=== PATIENT | female | born 1960 | race Hispanic/Latino ===

== ENCOUNTER 2016-06-05 14:20 | Emergency (ER) | payer OTHER ==
[~2016-06-05] VITALS: Ht 165.1 cm; Wt 111.1 kg
[~2016-06-05 14:20] MED LIST: ASPIR 8181 MG PO; LOSARTAN POTASS25 MG PO; METHIMAZOLE5 MG PO; NAPROXEN500 MG PO; PERCOCET 325 MG1 TA2 PO
--- NOTE | 2016-06-05 15:15 | ED INFLUENZA/URI COMPLAINT ---
History of Present Illness General Chief Complaint: Upper Respiratory Sx/Fever Stated Complaint: URI X 1WEEK Source: patient, family, old records Exam Limitations: no limitations Vital Signs & Intake/Output Vital Signs & Intake/Output Vital Signs Date Time Temp Pulse Resp B/P Pulse O2 O2 Flow FiO2 Ox Delivery Rate 06/05 1643 97.0 60 18 109/65 99 Room Air 06/05 1550 97 06/05 1538 99 Room Air 06/05 1429 98.4 70 20 135/71 97 Room Air Allergies Coded Allergies: NO KNOWN ALLERGIES (06/04/14) Reconcile Medications Aspirin (Ecotrin) 81 MG TABLET.DR 1 TAB PO DAILY HEART HEALTH (Reported) Losartan Potassium (Unknown Strength) TABLET (Unknown Dose) PO DAILY BP ( Reported) Methimazole 5 MG TABLET 1 TAB PO DAILY AC THYROID (Reported) Naproxen 500 MG TABLET 1 TAB PO Q12H PRN PAIN/SWELLING OXYCODONE HCL/ACETAMINOPHEN (Percocet 5-325 MG Tablet) 325 MG/5 MG TAB 1 TAB PO Q4-6 PRN PRN PAIN Triage Note: RECEIVED 56 YO FEMALE C/O DRY HARSH COUGH X 5 DAYS WITH SHORTNESS OF BREATH AND RIGHT LATERAL RIBCAGE AREA PAIN WITH COUGHING. NO C/O N/V/D. Triage Nurses Notes Reviewed? yes Onset: Last week Duration: day(s):, constant, continues in ED Timing: recent history Severity: moderate Prior Episodes/Possible Cause: illness exposure No Modifying Factors: none Associated Symptoms: cough, dizziness, lightheadedness, nasal congestion, sore throat LMP (ages 10-50): post menopausal, unknown : No Patient currently breastfeeds: No HPI: 1 week prior to admission patient complains of hacking nonproductive cough nasal congestion chills sore throat with coughing right-sided chest pain with coughing. She denies fever nausea vomiting diarrhea abdominal pain shortness breath headache dysuria rash bleeding. Past History Travel History Traveled to [place] past 21 day No Medical History Any Pertinent Medical History? see below for history Neurological: NONE EENT: NONE Cardiovascular: hypertension Respiratory: NONE Gastrointestinal: NONE Hepatic: NONE Renal: NONE Musculoskeletal: PREVIOUS KNEE INJURY Psychiatric: NONE Endocrine: HYPERTHYROID Blood Disorders: NONE Cancer(s): NONE Surgical History Surgical History: non-contributory Psychosocial History Who do you live with Spouse Services at Home None What is your primary language Kazakh Tobacco Use: Never used Family History Hx Contributory? No Review of Systems Review of Systems Constitutional: Reports: see HPI, chills. EENTM: Reports: nasal congestion, throat pain. Respiratory: Reports: see HPI, cough. Cardiovascular: Reports: no symptoms. GI: Reports: no symptoms. Genitourinary: Reports: no symptoms. Musculoskeletal: Reports: no symptoms. Skin: Reports: no symptoms. Neurological/Psychological: Reports: no symptoms. Hematologic/Endocrine: Reports: no symptoms. Immunologic/Allergic: Reports: no symptoms. All Other Systems: Reviewed and Negative Physical Exam Physical Exam General Appearance: well developed/nourished, alert, awake, anxious, moderate distress, obese Head: atraumatic, normal appearance Eyes: Bilateral: normal appearance, PERRL, EOMI. Ears, Nose, Throat: moist mucous membrane, nasal drainage Neck: normal inspection, supple, full range of motion, trachea midline, lymphadenopathy (R), lymphadenopathy (L), no midline tenderness Respiratory: chest non-tender, quiet respiration, lungs clear, decreased breath sounds Cardiovascular: regular rate/rhythm, normal peripheral pulses, norml femoral pulses equa Peripheral Pulses: 4+ carotid (R), 4+ carotid (L) Gastrointestinal: normal bowel sounds, soft, non-tender, no organomegaly Back: normal inspection, normal range of motion Extremities: normal inspection, normal capillary refill, normal range of motion, no edema Neurologic/Psych: no motor/sensory deficits, awake, alert, oriented x 3, normal gait, normal mood/affect, barrel rifler II-XII nml as tested Reflexes: 2+: bicep (R), bicep (L). Skin: intact, normal color, warm/dry Lymphatic: adenopathy Core Measures Severe Sepsis Present: No Septic Shock Present: No Progress Differential Diagnosis: influenza, otitis, pneumonia, pharyngitis, sinusitis Plan of Care: Orders Procedure Date/time Status RAPID VIRAL INFLUENZA A 06/05 1505 Complete Current Medications Sig/Reanna Start time Last Medication Dose Stop Time Status Admin Albuterol Sulfate 3 ML ONCE ONE 06/05 1545 CAN (Proventil) 06/05 1546 Ipratropium [place] 2.5 ML ONCE ONE 06/05 1545 CAN (Atrovent) 06/05 1546 Diagnostic Imaging: Viewed by Me: Radiology Read. Discussed w/RAD: Radiology Read. CXR Impression: no acute abnormality Initial ED EKG: none Departure Departure Time of Disposition: 1714 Disposition: HOME OR SELF CARE Condition: Stable Clinical Impression Primary Impression: Bronchitis Referrals: LEAH AZAR DO (PCP/Family) Departure Forms: Customer Survey General Discharge Information Prescriptions: Current Visit Scripts Amoxicillin 1 TAB PO BID #20 TAB Albuterol Sulfate (Proair Hfa) 2-4 PUF INH Q4-6 PRN PRN shortness of breath #1 INHAL Promethazine HCl/Codeine (Promethazine-Codeine Syrup) 5-10 ML PO Q6P #240 ML
--- NOTE | 2016-06-05 17:05 | RADIOLOGY REPORT ---
EXAMINATION: XR CHEST CLINICAL INFORMATION: Hacking cough. Evaluate for pneumonia. COMPARISON: Multiple priors, most recent CT chest dated 05/03/2013. TECHNIQUE: PA and lateral views of the chest were obtained. FINDINGS: The lungs are clear. The cardiomediastinal silhouette is normal in size. There is no pleural effusion or pneumothorax. No abnormalities are noted in the visualized bones. IMPRESSION: No acute cardiopulmonary disease.
[2016-06-05] MEDS ORDERED: PROAIR HFA8.5 GM INH ×2 (17:16→17:23)
[2016-06-05] MEDS ORDERED: AMOXICILLIN875 M1 PO ×2 (17:16→17:23)
[2016-06-05] MEDS ORDERED: PROMETHAZINE-C118 ML PO ×2 (17:16→17:23)
[2016-06-05 17:34] VITALS: BP 112/74
== END 2016-06-05 17:34 ==
LOC: ERH 14:20
DX: J40 Bronchitis, not specified as acute or chronic (principal); R07.9 Chest pain, unspecified
CPT/HCPCS: 1263; 87804; 87804-59

== ENCOUNTER 2017-12-09 09:50 | Emergency (ER) | payer OTHER ==
[~2017-12-09] VITALS: Ht 165.1 cm; Wt 116.6 kg
[~2017-12-09 09:50] MED LIST changes: +AMOXICILLIN875 M1 PO; +AUGMENTIN 875-1 EACH PO; +GABAPENTIN300 M2 PO; +LOSARTAN POTASS25 M1 PO; +METHIMAZOLE5 M1 PO; +NASONEX17 GM NASB; +PREDNISOLO15 MG/5 M4 PO; +PROAIR HFA8.5 GM INH; +PROMETHAZINE-C118 ML PO; +VALTREX1000 MG PO; +VENTOLIN HFA18 GM INH; +VITAMIN D31000 UNI1 PO
--- NOTE | 2017-12-09 11:45 | ED GI/GU/ABDOMINAL COMPLAINT ---
History of Present Illness General Chief Complaint: Nausea, Vomiting, Diarrhea Stated Complaint: N/V Source: patient, family Exam Limitations: no limitations Vital Signs & Intake/Output Vital Signs & Intake/Output Vital Signs Date Time Temp Pulse Resp B/P B/P Pulse O2 O2 Flow FiO2 Mean Ox Delivery Rate 12/09 1411 65 18 135/65 99 Room Air 12/09 1234 60 18 143/61 100 Room Air 12/09 1232 Room Air 12/09 0955 97.5 65 18 162/81 99 Room Air Allergies Coded Allergies: No Known Allergies (12/08/17) Reconcile Medications Atorvastatin Calcium 20 MG TABLET 1 TAB PO DAILY CHOLESTEROL (Reported) Cholecalciferol (Vitamin D3) (Vitamin D3) 1,000 UNIT CAPSULE 1 CAP PO DAILY SUPPLEMENT (Reported) Gabapentin 300 MG CAPSULE 1 CAP PO TID PRN PAIN (Reported) Losartan Potassium 25 MG TABLET 1 TAB PO DAILY HTN (Reported) Methimazole 5 MG TABLET 1 TAB PO DAILY THYROID (Reported) Ondansetron (Zofran Odt) 4 MG TAB.RAPDIS 1 TAB SL TID PRN nausea Triage Note: 57F STARTED LIQUID DIET FOR LAP BAND AND BEGAN FEELING NAUSEOUS LAST NIGHT AND STARTED VOMITING X4 APPROX 2 HOURS AGO. FEELING TOO WEAK AND SHAKEY, UNABLE TO WALK DUE TO WEAKNESS. DENIES ABD PAIN, ONLY HAS PAIN TO DENOMINATIONAL HEADACHE AFTER VOMITING Triage Nurses Notes Reviewed? yes ? N Is pt currently ? No Onset: Gradual Duration: day(s): Timing: recent history Quality/Severity: moderate HPI: 57-year-old female presents emergency department complaining of headache and vomiting beginning yesterday. Patient states that last night she began feeling right sided throbbing headache described as severe. Patient states that this morning headache has persisted and she now has had episodes of vomiting. Vomiting is nonbloody, nonbilious. Patient reports associated nausea with her vomiting. Vomiting has worsened her headache. Patient reports feeling weak and shaky at this time. Patient states that she started a liquid diet yesterday for an upcoming lap band scheduled for 12/20. Patient notes she just switched from regular coffee to decaf. She reports chills. The patient denies abdominal pain, diarrhea, chest pain, dyspnea, head trauma, loss of conciousness. (Gerda ABREU,Misti Plunkett) Past History Travel History Traveled to [place] past 21 day No Medical History Any Pertinent Medical History? see below for history Neurological: NONE EENT: NONE Cardiovascular: hypertension, CHOL Respiratory: NONE Gastrointestinal: NONE Hepatic: NONE Renal: NONE Musculoskeletal: PREVIOUS KNEE INJURY Psychiatric: NONE Endocrine: HYPERTHYROID Blood Disorders: NONE Cancer(s): NONE Surgical History Surgical History: non-contributory Psychosocial History Who do you live with Spouse Services at Home None What is your primary language Finnish Tobacco Use: Never used Family History Hx Contributory? No (Misti Antony) Review of Systems Review of Systems Constitutional: Reports: no symptoms. EENTM: Reports: no symptoms. Respiratory: Reports: no symptoms. Cardiovascular: Reports: no symptoms. GI: Reports: see HPI. Genitourinary: Reports: no symptoms. Musculoskeletal: Reports: no symptoms. Skin: Reports: no symptoms. Neurological/Psychological: Reports: see HPI. Hematologic/Endocrine: Reports: no symptoms. Immunologic/Allergic: Reports: no symptoms. All Other Systems: Reviewed and Negative (Misti Antony) Physical Exam Physical Exam General Appearance: well developed/nourished, no apparent distress, alert, awake Head: atraumatic, normal appearance Eyes: Bilateral: normal appearance, PERRL, EOMI. Ears, Nose, Throat, Mouth: hearing grossly normal, moist mucous membrane, cerumen bilateral ear canals without erythema Neck: normal inspection, supple, full range of motion Respiratory: normal breath sounds, no respiratory distress, lungs clear Cardiovascular: regular rate/rhythm Gastrointestinal: normal bowel sounds, soft, non-tender, no organomegaly Back: normal inspection, normal range of motion Extremities: normal range of motion Neurologic/Psych: no motor/sensory deficits, awake, alert, oriented x 3, forming machine adjuster II- XII nml as tested Skin: intact, normal color, warm/dry Core Measures ACS in differential dx? No Sepsis Present: No Sepsis Focused Exam Completed? No (Misti Antony) Progress Differential Diagnosis: bowel obstruction, cholecystitis, gastritis, hernia, peptic ulcer, PUD/GERD, SBO, ICH, SAH, malignancy, migraine headache, caffiene withdrawal Plan of Care: Orders Procedure Date/time Status EKG 12/09 1158 Active URINALYSIS 12/09 0954 Complete TROPONIN LEVEL 12/09 0954 Complete LIPASE 12/09 0954 Complete COMPREHENSIVE METABOLIC PANEL 12/09 0954 Complete CBC WITHOUT DIFFERENTIAL 12/09 0954 Complete Laboratory Tests 12/09/17 1217: Urinalysis MOD H, Urine Color YEL, Urine Clarity HAZY H, Urine pH 8.0, Ur Specific [place] 1.020, Urine Protein TRACE H, Urine Ketones TRACE H, Urine Nitrite NEG, Urine Bilirubin NEG, Urine Urobilinogen 0.2, Ur Leukocyte Esterase NEG, Ur Microscopic SEDIMENT EXAMINED, Urine RBC 3-5, Urine WBC RARE, Ur Epithelial Cells FEW, Urine Bacteria FEW H, Urine Mucus MOD H, Urine Hemoglobin NEG, Urine Glucose NEG 12/09/17 1145: Anion Gap 8, Estimated GFR > 60, BUN/Creatinine Ratio 26.7 H, Glucose 113 H, Calcium 9.6, Total Bilirubin 1.8 H, AST 30, ALT 39, Alkaline Phosphatase 62, Troponin I < 0.01, Total Protein 7.3, Albumin 4.2, Globulin 3.1, Albumin/ Globulin Ratio 1.4, Lipase 147, CBC w Diff NO MAN DIFF REQ, RBC 5.03, MCV 84.7, MCH 28.4, MCHC 33.5, RDW 14.3, MPV 7.7, Gran % 81.4 H, Lymphocytes % 14.0 L, Monocytes % 3.9, Eosinophils % 0.4, Basophils % 0.3, Absolute Granulocytes 4.6, Absolute Lymphocytes 0.8 L, Absolute Monocytes 0.2, Absolute Eosinophils 0, Absolute Basophils 0 Patient is neurologically intact on physical exam, no focal neurologic deficit. She answers questions readily. Head CT scan shows no acute abnormality. Patient's labs are stable, bilirubin is slightly elevated however she has no abdominal tenderness is likely related to her acute vomiting episodes. She has had no further vomiting here in the emergency department. She reports significant improvement in headache and nausea following IV medications. Patient has gone from 6 cups of coffee a day to 0, acute headache may be related to caffeine withdrawal. The patient feels ready to go home at this time. I encouraged her to contact her bariatric surgeon discuss options for tapering her caffeine may help with her headache. Patient is now able to ambulate leaving the emergency department. She agrees with the plan of care. Strict return precautions given. Diagnostic Imaging: Viewed by Me: CT Scan. Discussed w/RAD: CT Scan. Radiology Impression: PATIENT: TORI NGUYEN PRESENT AGE: 57 PATIENT ACCOUNT NO: [id number] : 56 LOCATION: [facility] ORDERING PHYSICIAN: Misti ABREU SERVICE DATE: 12/09/17 EXAM TYPE: CAT - CT HEAD WO IV CONTRAST EXAMINATION: CT HEAD WITHOUT CONTRAST CLINICAL INFORMATION: Headache followed by vomiting. Rule out ICH. COMPARISON: Brain MRI 04/22/2016. TECHNIQUE: Contiguous axial imaging was performed from the skull base to vertex without intravenous administration of contrast. DLP: 613 mGy-cm. FINDINGS: There is no intracranial hemorrhage, large infarction, or mass lesion. There is no extra-axial collection. The ventricles are normal in size and configuration without evidence of hydrocephalus. The visualized paranasal sinuses and mastoid air cells are clear. IMPRESSION: No acute intracranial abnormality. DICTATED BY: Duong Johnson MD DATE/TIME DICTATED:12/09/171254 PLANT ETIOLOGIST:KM DATE/TIME TRANSCRIBED:12/09/171254 CONFIDENTIAL, DO NOT COPY WITHOUT APPROPRIATE AUTHORIZATION. <Electronically signed in Other Vendor System> SIGNED BY: Duong Johnson MD 12/09/17 1307 Initial ED EKG: sinus rhythm @51bpm, nonspecific ST changes Repeat EKG: unchanged (05/03/13) (Gerda ABREU,Misti Plunkett) Departure Departure Disposition: HOME OR SELF CARE Condition: Stable Clinical Impression Primary Impression: Headache Qualifiers: Headache type: unspecified Headache chronicity pattern: acute headache Intractability: not intractable Qualified Code: R51 - Headache Secondary Impressions: Nausea & vomiting Qualifiers: Vomiting type: unspecified Vomiting Intractability: non-intractable Qualified Code: R11.2 - Nausea with vomiting, unspecified Referrals: Kiesha White DO (PCP/Family) Additional Instructions: Your headache may be related to caffeine withdrawal. Discuss the option of drinking caffeine with your bariatric surgeon. Increase fluids and rest. Take Zofran as prescribed as needed for nausea. Return with worsening symptoms or concerns. Please note that there might be incidental findings in your evaluation that are unrelated to the current emergency department visit. Please notify your primary care doctor about this emergency department visit in order to obtain and review all of the testing performed so that these incidental findings can be monitored as needed. If you had an x-ray performed, please understand that some fractures may not be seen on the initial set of x-rays. If your symptoms persist you might need a repeat set of x-rays to check for such a fracture. If you had a laceration evaluated, please understand that foreign bodies such as glass or wood may not be visible to the naked eye or on plain x-rays. If the wound becomes red, swollen, increasingly more painful or if there is any drainage from the wound, please have it reevaluated by a physician for the possibility of a retained foreign body. If you're unable to follow up as outlined in the discharge instructions please return to the emergency department. Thank you for choosing the [facility] Emergency Department for your care. It was a pleasure to serve you today. Departure Forms: Customer Survey General Discharge Information Prescriptions: Current Visit Scripts Ondansetron (Zofran Odt) 1 TAB SL TID PRN nausea #10 TAB (Gerda ABREU,Misti Plunkett) PA/PEACH GROWER Co-Sign Statement Statement: ED Attending supervision documentation- [] I saw and evaluated the patient. I have also reviewed all the pertinent lab results and diagnostic results. I agree with the findings and the plan of care as documented in the PA's/PEACH GROWER's documentation. [X] I have reviewed the ED Record and agree with the PA's/PEACH GROWER's documentation. [] Additions or exceptions (if any) to the PAs/PEACH GROWER's note and plan are summarized below: [] (Jaren ELIZABETH,Stoney Cobb)
[2017-12-09 11:55] LABS: ABSOLUTE BASOPHIL COUNT 0 /CUMM (0.0-0.2); ABSOLUTE EOSINOPHIL COUNT 0 /CUMM (0.0-0.7); ABSOLUTE GRANULOCYTE CT 4.6 /CUMM (1.4-6.5); ABSOLUTE LYMPH COUNT 0.8 /CUMM (1.2-3.4); ABSOLUTE MONOCYTE COUNT 0.2 /CUMM (0.10-0.60); BASOPHIL % 0.3 % (0.0-2.0); EOSINOPHIL % 0.4 % (0-5); HEMATOCRIT 42.6 % (37-47); MEAN CORPUSCULAR HGB 28.4 PG (27.0-31.0); MEAN CORPUSCULAR HGB CONC 33.5 G/DL (33.0-37.0); MEAN CORPUSCULAR VOLUME 84.7 FL (81.0-99.0); MEAN PLATELET VOLUME 7.7 FL (7.4-10.4); PLATELET COUNT 238 /CUMM (130-400); RBC DISTRIBUTION WIDTH 14.3 % (11.5-14.5); RED BLOOD CELL CT 5.03 /CUMM (4.20-5.40); WHITE BLOOD CELL COUNT 5.7 /CUMM (4.8-10.8)
[2017-12-09 11:56] LABS: GRANULOCYTE % 81.4 % (42.2-75.2)
--- NOTE | 2017-12-09 13:07 | CT SCAN REPORT ---
EXAMINATION: CT HEAD WITHOUT CONTRAST CLINICAL INFORMATION: Headache followed by vomiting. Rule out ICH. COMPARISON: Brain MRI 04/22/2016. TECHNIQUE: Contiguous axial imaging was performed from the skull base to vertex without intravenous administration of contrast. DLP: 613 mGy-cm. FINDINGS: There is no intracranial hemorrhage, large infarction, or mass lesion. There is no extra-axial collection. The ventricles are normal in size and configuration without evidence of hydrocephalus. The visualized paranasal sinuses and mastoid air cells are clear. IMPRESSION: No acute intracranial abnormality.
[2017-12-09] MEDS ORDERED: ATORVASTATIN CA20 M1 PO (13:08)
[2017-12-09 14:11] VITALS: BP 135/65
[2017-12-09] MEDS ORDERED: ZOFRAN ODT4 M1 SL (14:24)
== END 2017-12-09 14:26 ==
LOC: ERH 09:50
PROVIDERS: Physician Assistant Medical
DX: R51 Headache (principal); R11.2 Nausea with vomiting, unspecified
CPT/HCPCS: 81001; 93005; 93010; 96374; 96375; J1200; J1885; J2765; J3101

== ENCOUNTER 2017-12-20 01:21 | Inpatient (IN) | payer OTHER ==
[~2017-12-20] VITALS: Ht 165.1 cm; Wt 111.6 kg
[~2017-12-20 01:21] MED LIST changes: +ATORVASTATIN CA20 M1 PO; +ZOFRAN ODT4 M1 SL
--- NOTE | 2017-12-20 12:51 | Operative Report ---
Operative/Inv Procedure Report Surgery Date: 12/20/17 Name of Procedure: Robotic assisted laparoscopic vertical sleeve gastrectomy Pre-Operative Diagnosis: Morbid obesity Post-Operative Diagnosis: Morbid obesity Estimated Blood Loss: less than 50ml Surgeon/Bracelet And Brooch Maker: Raina ELIZABETH,Merritt Peck PA-C Anesthesia: general endotracheal tube, block IV Fluids: Lactated Ringer's Urine Output: Not measured Drains: None Specimens: Portion of stomach Complications: None Condition: Stable Operative Indication: Please see admitting history and physical Operative/Procedure Note Note: After informed consent and proper identification the patient was taken to the operating room placed on the operating table in supine position. Venodyne stockings were applied. She underwent a general endotracheal anesthetic. Anesthesia performed a tap block. The abdomen was prepped and draped in normal sterile fashion. Using a 1 cm incision just to the left of midline umbilicus we inserted a 0 Stortz laparoscope through a 8 mm robotic Visiport entering the abdominal cavity without difficulty insufflating with 14 mm of CO2 pressure. In horizontal line we placed 3 additional trochars 80 mm trocar just to the right in the midline umbilicus a 12 mm trocar to the left as well as an 8 mm trocar most laterally on the left. We placed a Britany liver retractor in the upper midline to retract the left lobe of liver we docked the robot placing arm #2 to the camera port and then targeted the robot. We then talked the rest of the arms. Using an arm 1 Accardi a forcep and arm for a tip up retractor and the vessel sealer in arm 3 with anesthesia to decompress his stomach with an orogastric tube and then remove it we took down the vascular attachments along the greater curvature of the stomach using the vessel sealer. We then had anesthesia place a 40 Estonian bougie in approximately 6 cm from the pylorus opposite the angularis we used a robotic stapler firing 3 green load staple cartridges followed by 4 blue load cartridges to completely straight transect the remnant stomach from newly created sleeve we oversewed the staple line using a 3-0V lock suture on a Cv23 needle imbricating the entire staple line. We then removed and a Britany liver retractor went back to the table from the surgeon' s console and removed the remnant stomach and a 12 Endo Catch bag and removed all trochars there is no active bleeding sponge and instrument counts were correct. No sponges were placed in the abdominal cavity the single needle that was placed was removed. Close the skin incisions with 4-0 Monocryl subcuticular stitches and skin glue. The patient tolerated procedure without complications and was taken recovery room in stable condition Findings: Normal-appearing liver and no evidence of hiatal hernia Discharge Disposition: PACU
--- NOTE | 2017-12-20 13:34 | Patient Discharge Instructions ---
Discharge Instructions General Discharge Information You were seen/treated for: Morbid obesity, hyperlipidemia, hypertension, hyperthyroidism You had these procedures: Robotic sleeve gastrectomy Watch for these problems: Bleeding, signs of infection including redness, swelling, or unusual drainage from incisions, fever greater than 101, increased pain, nausea, vomiting, excessive diarrhea, or no bowel movements, or any other problems, questions, or concerns Do not soak the wound: Yes Daily wet to dry dressings: No No bath, but you may shower: Yes Other wound care: glue will slough off on its own Diet Continue normal diet: No Recommended Diet: Bariatric Activity Full Activity/No Limits: No Activity Self Limited: Yes Pounds, do NOT lift more than: 10 (x 2 weeks) Acute Coronary Syndrome Inclusion Criteria At DC or during hospital stay patient has or had the following: ACS DIAGNOSIS No Discharge Core Measures Meds if any: Prescribed or Continued at Discharge Meds if any: NOT Prescribed or Continued at Discharge Congestive Heart Failure Inclusion Criteria At DC or during hospital stay patient has or had the following: CHF DIAGNOSIS No Discharge Core Measures Meds if any: Prescribed or Continued at Discharge Meds if any: NOT Prescribed or Continued at Discharge Cerebrovascular accident Inclusion Criteria At DC or during hospital stay patient has or had the following: CVA/TIA Diagnosis No Discharge Core Measures Meds if any: Prescribed or Continued at Discharge Meds if any: NOT Prescribed or Continued at Discharge Venous thromboembolism Inclusion Criteria VTE Diagnosis No VTE Type NONE VTE Confirmed by (Test) NONE Discharge Core Measures - Per Current guidelines, there needs to be overlap - treatment for the first 5 days of Warfarin therapy. - If discharged on Warfarin prior to 5 days of - overlap therapy, the patient will need to be - assessed for post discharge needs including - *Post discharge parental anticoagulation - *Warfarin and/or parental anticoagulation education - *Follow up date to check INR post discharge At least 5 days overlap therapy as Inpatient No Meds if any: Prescribed or Continued at Discharge Note: Overlap Therapy is Warfarin and Anticoagulant Meds if any: NOT Prescribed or Continued at Discharge
--- NOTE | 2017-12-20 13:35 | Admission Core Measures ---
Acute Coronary Syndrome (CM) ACS Core Measures Acute Coronary Syndrome Diagnosis No Congestive Heart Failure (NEW) CHF Core Measures Congestive Heart Failure Diagnosis No Cerebrovascular Accident CVA Core Measures CVA/TIA Diagnosis No Venous Thromboembolism VTE Core Mary (View Protocol) VTE Risk Factors Surgery No Mechanical VTE Prophylaxis d/t N/A MechProphylax Ordered No VTE Pharm Prophylaxis d/t NA PharmProphylax ordered Problem List As ranked by this Provider includes Assessment & Plan 1. Morbid obesity 2. S/P laparoscopic sleeve gastrectomy HOME MEDS Home Med List Atorvastatin Calcium 20 MG TABLET 1 TAB PO DAILY CHOLESTEROL (Reported) Cholecalciferol (Vitamin D3) (Vitamin D3) 1,000 UNIT CAPSULE 1 CAP PO DAILY SUPPLEMENT (Reported) Gabapentin 300 MG CAPSULE 1 CAP PO TID PRN PAIN (Reported) Losartan Potassium 25 MG TABLET 1 TAB PO DAILY HTN (Reported) Methimazole 5 MG TABLET 1 TAB PO DAILY THYROID (Reported) Ondansetron (Zofran Odt) 4 MG TAB.RAPDIS 1 TAB SL TID PRN nausea
--- NOTE | 2017-12-20 13:38 | Surg Short-stay <48hrs Dis Sum ---
Visit Information Visit Dates Admission Date: 12/20/17 Discharge Date: 12/21/17 Surgical Short Stay DC Summary Admission Diagnosis: Morbid obesity Final Diagnosis: Same Procedure(s): Robotic sleeve gastrectomy Summary/Significant Findings: This is a 57 yo female with a past medical history significant for hypertension, hyperlipidemia, arthritis, hyperthyroidism, and morbid obesity who presented electively for robotic sleeve gastrectomy. Patient underwent the aforementioned procedure without complication. Postoperative course was uncomplicated. She was initiated on a bariatric stage I diet day of surgery and underwent an upper GI on postop day #1 which revealed no obstruction or leak. She was placed back on a bariatric stage I diet which she tolerated without difficulty. By time of discharge patient was ambulating, voiding, tolerating a bariatric stage I diet, and pain was well-controlled with oral analgesia. Plan is for the patient to follow-up with Dr. Paris in 1-2 weeks. She was instructed to call sooner with any other problems, questions, or concerns. Full details of her hospital course , operative report, and diagnostic studies can be found in the patient's electronic chart. Condition at Discharge: Stable Discharge Disposition: home or self care Discharge instructions provided to patient/family: Yes Post discharge follow-up plan: With Dr. Paris in 1-2 weeks Copies to: Raina ELIZABETH,Merritt Mancini
--- NOTE | 2017-12-20 15:09 | PN- General Surgery ---
Subjective Subjective: POC pt recovering in PACU, tolerating ice chips with no nausea. 5/10 pain/pressure over stomach. Due to void. No CP/SOB/QURESHI Objective Vital Signs and I&Os VSS, afebrile resp- clear cardiac- RRR abd- obese, soft, minimally tender. small amount of dry blood around far right abd incision. all other incisions are clean and dry covered with glue ext- no calf tenderness Current Medications: Current Medications Sig/Reanna Start time Last Medication Dose Route Stop Time Status Admin Acetaminophen 1,000 MG Q6H 12/20 1330 UNVr N/A 1 UNIT IV 12/21 0744 Acetaminophen 0 .STK-MED ONE 12/20 1000 DC IV Atorvastatin Calcium 20 MG 1700 12/20 1700 UNVr PO Cefazolin Sodium 2,000 MG ONCE 12/20 0000 NR IV 12/20 2359 Cholecalciferol 2,000 IU DAILY 12/21 0900 UNVr PO Dexamethasone 10 MG ONCE 12/20 0000 NR IV 12/20 2359 Diphenhydramine HCl 50 MG Q6P PRN 12/20 1330 UNVr IV Docusate Sodium 100 MG BID 12/20 2100 UNVr PO Enoxaparin Sodium 40 MG DAILY 12/21 0900 UNVr SC Fentanyl Citrate 0 .STK-MED ONE 12/20 1001 DC .ROUTE Gabapentin 300 MG Q8 12/20 1400 UNVr PO Heparin Sodium 0 .STK-MED ONE 12/20 0838 DC (Porcine) .ROUTE Heparin Sodium 5,000 UNIT PRE 12/20 0000 NR (Porcine) SC 12/20 2359 Hydromorphone HCl 0 .STK-MED ONE 12/20 1453 DC .ROUTE Hydromorphone HCl 0 .STK-MED ONE 12/20 1409 DC .ROUTE Hydromorphone HCl 0 .STK-MED ONE 12/20 1331 DC .ROUTE Ketorolac 15 MG Q6 12/20 1800 UNVr Tromethamine IV 12/21 1801 Ketorolac 0 .STK-MED ONE 12/20 1001 DC Tromethamine .ROUTE Lactated Ringer's 1,000 ML Q13H 12/20 1330 UNVr IV Losartan Potassium 25 MG DAILY 12/21 0900 UNVr PO Methimazole 5 MG DAILY 12/21 0900 UNVr PO Metoclopramide HCl 10 MG Q6P PRN 12/20 1330 UNVr IV Morphine Sulfate 2 MG Q4P PRN 12/20 1330 UNVr IV Morphine Sulfate 4 MG Q4P PRN 12/20 1330 UNVr IV Ondansetron HCl 0 .STK-MED ONE 12/20 1337 DC .ROUTE Ondansetron HCl 4 MG Q6P PRN 12/20 1330 UNVr IV Ondansetron HCl 0 .STK-MED ONE 12/20 1000 DC .ROUTE Oxycodone/ 1 TAB Q4P PRN 12/20 1330 UNVr Acetaminophen PO Oxycodone/ 2 TAB Q4P PRN 12/20 1330 UNVr Acetaminophen PO Pantoprazole Sodium 40 MG DAILY 12/20 1323 UNVr IV Polyethylene Glycol 17 GM DAILY 12/21 0900 UNVr PO Simethicone 80 MG TID 12/20 1400 UNVr PO Assessment/Plan Assessment/Plan 57yo morbidly obese F SP robotic sleeve gastrectomy POD0. stable in PACU bariatric stage 1 diet NPO after midnight for possible upper GI in AM if nauseous pain management IVF overngiht FU AM labs dvt ppx- lovenox gi ppx- protonix regular home meds IS encourage ambulation dc planning- possibly home tomorrow Core Measures Venous Thromboembolism VTE Risk Factors Surgery No Mechanical VTE Prophylaxis d/t N/A MechProphylax Ordered No VTE Pharm Prophylaxis d/t NA PharmProphylax ordered
[2017-12-20 22:46] VITALS: BP 147/75
[2017-12-21 02:49] VITALS: BP 132/72
[2017-12-21 06:56] VITALS: BP 134/70
--- NOTE | 2017-12-21 07:02 | PN- Student ---
Virginia Peng 12/21/17 6564: Subjective Subjective: Pt states that she has a headache this morning secondary to caffeine withdrawal. She says her abdominal pain is well controlled this morning. Last night, the pain kept her up some of the night. She is nauseous when she gets up to use the bathroom, but otherwise has felt okay. Has not had difficulty urinating or getting out of bed to urinate. Has not passed gas or had a bowel movement since her surgery. Denies any CP, SOB, difficulty breathing, dizziness, numbness or tingling. Objective Objective: Physical Exam: Vitals: See EMR General: Middle aged, obese, female sitting up in bed in NAD. Cardio: Regular rate and rhythm. S1 and S2 appreciated. No murmurs, rubs or gallops. Pulm: Symmetric rise and fall of the chest noted. Breath sounds heard in anterior and posterior lung corea with no wheezes, rhonchi or rales appreciated. Abdominal: Incisions were visualized and intact with no erythema, warmth, excessive tenderness or discharge. Abdomen was slightly tender to palpation. Normoactive bowel sounds were heard. No masses or organomegaly were appreciated. Abdomen was tympanitic throughout. Extremities: Calves bilaterally were soft, non-tender and non-erythematous. Dorsalis pedis and posterior tibialis pulses were appreciated. Plantar and dorsi flexion was intact with 5/5 strength. Gross sensation was intact and equal bilaterally. Assessment/Plan Assessment: A: 57 year old female POD#1 s/p robotic sleeve gastrectomy, with a PMH including HTN, HLD, arhtritis, hyperthyrodisim and morbid obesity. Patient's pain is being well controlled now with the exception of a headache most likely secodnary to caffeine withdrawal. Plan: P: Continue with pain control. Fioricet for headache secondary to caffeine withdrawal. Patient NPO since midnight, will have UGI X-Ray this am d/t nausea. Bariatric Stage 1 diet afterwards. Lovenox and ALPs for DVT prophylaxis. Incentive spirometer use encouraged. Ambulation encouraged. PT to see patient. Continue with home medications. Will discuss with attending and surgical PAs. Cristina Stroud 12/21/17 2453: Assessment/Plan Plan: agree with above PA-S note will try fioricet for headache / caffeine withdrawal currently npo / ivf, awaiting upper gi study anti-emetics as needed for nausea oob/ambulation encouraged no need for PT eval f/u labs and upper gi study lovenox teaching for pre-op risk assessment / indication for lovenox at home when discharged will d/w
[2017-12-21 08:10] LABS: ABSOLUTE BASOPHIL COUNT 0 /CUMM (0.0-0.2); ABSOLUTE EOSINOPHIL COUNT 0 /CUMM (0.0-0.7); ABSOLUTE MONOCYTE COUNT 0.7 /CUMM (0.10-0.60); BASOPHIL % 0.2 % (0.0-2.0); EOSINOPHIL % 0 % (0-5); GRANULOCYTE % 82.9 % (42.2-75.2); MEAN CORPUSCULAR HGB 28.4 PG (27.0-31.0); MEAN CORPUSCULAR HGB CONC 33.4 G/DL (33.0-37.0); MEAN CORPUSCULAR VOLUME 84.9 FL (81.0-99.0); MEAN PLATELET VOLUME 8.3 FL (7.4-10.4); PLATELET COUNT 194 /CUMM (130-400); RBC DISTRIBUTION WIDTH 14.5 % (11.5-14.5); RED BLOOD CELL CT 4.47 /CUMM (4.20-5.40); WHITE BLOOD CELL COUNT 9.7 /CUMM (4.8-10.8)
--- NOTE | 2017-12-21 10:09 | RADIOLOGY REPORT ---
EXAMINATION: FL UPPER GI SERIES CLINICAL INFORMATION: Morbid obesity. Status post sleeve gastrectomy. COMPARISON: None TECHNIQUE: A single contrast upper GI series with fluoroscopy and spot imaging was performed. The patient ingested Gastroview contrast material without difficulty and was evaluated in the upright and recumbent positions. FLUOROSCOPY TIME: 19 seconds NUMBER OF IMAGES: 7 images FINDINGS: After oral intake of 30 mL of Gastroview contrast material, there was prompt passage of contrast through the esophagus and into the stomach, which had the expected configuration after sleeve gastrectomy. No delay in passage of contrast into the normal duodenum. No evidence of a fixed filling defect, mucosal thickening or contrast leakage. IMPRESSION: - No postoperative complications. - Status post sleeve gastrectomy without contrast leakage or upper GI tract obstruction.
[2017-12-21] MEDS ORDERED: PROTONIX40 M3 PO (11:39)
[2017-12-21] MEDS ORDERED: LOVENOX40 MG/0.1 SC (11:39)
[2017-12-21] MEDS ORDERED: BUTALB-ACETAMI1 EACH PO (11:39)
[2017-12-21 14:15] VITALS: BP 140/82
== END 2017-12-21 16:54 | DRG 403 ==
LOC: SDA 01:21 → CMPBEDREQ 13:13 → ENTRNSPT 18:49 → EDTRNSPT 18:59 → EDTRNSPTSTS 18:59 → ENRESERV 19:00 → 2NB 19:08 → CMPTRNSPT 19:16 → ENTRNSPT 12-21 16:51 → 2NB 12-21 16:54 → CMPTRNSPT 12-21 16:55
PROVIDERS: Physician Assistant Surgical
PROC: 0DB64Z3 Excision of Stomach, Percutaneous Endoscopic Approach, Vertical (ICD-10-PCS; principal; 2017-12-20)
PROC: 3E0T3BZ Introduction of Anesthetic Agent into Peripheral Nerves and Plexi, Percutaneous Approach (ICD-10-PCS; principal; 2017-12-20)
PROC: 8E0W4CZ Robotic Assisted Procedure of Trunk Region, Percutaneous Endoscopic Approach (ICD-10-PCS; principal; 2017-12-20)
DX: E66.01 Morbid (severe) obesity due to excess calories (principal); E78.5 Hyperlipidemia, unspecified; I10 Essential (primary) hypertension; G47.33 Obstructive sleep apnea (adult) (pediatric); Z68.41 Body mass index [BMI] 40.0-44.9, adult
CPT/HCPCS: 2NBSP; 36415; 74240; 82436; J0131; J0690; J1100; J1200; J1644; J1650; J1885; J2405; J2550; J2765; J3490; J7120